=== PATIENT | male | born 1980 | race Caucasian/White ===

== ENCOUNTER 2021-06-16 10:06 | Emergency (ER) | payer OTHER ==
[2021-06-16 11:14] LABS: BASOPHIL 0.9 % (0-2); EOSINOPHIL 1.7 % (0-5); HCT 45.3 % (42.0-52.0); HGB 15.2 g/dl (13.2-18.0); LYMPHOCYTE 31.4 % (15-48); MCH 29.6 pg (25.0-31.0); MCHC 33.6 g/dL (32.0-36.0); MCV 88.3 fL (78.0-100.0); MONOCYTE 6.3 % (0-12); MPV 11.6 fL (6.0-9.5); NEUTROPHIL 59.4 % (41-80); NRBC 0; PLT 196 K/uL (150-400); RBC 5.13 M/uL (4.70-6.00); RDW 12.9 % (11.5-14.0); WBC 7.6 K/uL (4.0-10.5)
[2021-06-16 11:25] LABS: ALBUMIN 3.9 g/dL (3.4-5.0); BILIRUBIN - TOTAL 0.6 mg/dL (0.2-1.0); BUN/CREAT RATIO (CALC) 11.6 RATIO; CREATININE 0.95 mg/dL (0.67-1.17); GLOBULIN (CALCULATION) 3.7 g/dL; POTASSIUM 3.8 mmol/L (3.5-5.1); TOTAL PROTEIN 7.6 g/dL (6.4-8.2)
[2021-06-16 11:32] LABS: CKMB 0.8 ng/mL (0.0-3.6)
[2021-06-16] MEDS ORDERED: NAPROXEN500 MG PO (12:16)
== END 2021-06-16 12:24 | disposition home or self-care (01) ==
LOC: FER 10:06
PROVIDERS: Emergency Medicine
DX: R07.89 Other chest pain (principal); M94.0 Chondrocostal junction syndrome [Tietze]; E11.9 Type 2 diabetes mellitus without complications
CPT/HCPCS: 36415; 71046; 80053; 82553; 84484; 85025; 85379; 93005